=== PATIENT | male | born 1990 | race African-American/Black ===

== ENCOUNTER → 2016-12-30 21:22 | Emergency (ER) | payer OTHER ==
[~2016-12-30 21:22] MED LIST: Ibuprofen TAB* 600 MG PO ONE
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
--- NOTE | 2016-12-30 23:02 | RAD ---
HISTORY: Head injury, facial injury, fall COMPARISONS: None TECHNIQUE: Multiple contiguous axial CT scans were obtained of the face without intravenous contrast, with coronal and sagittal multiplanar reformations. FINDINGS: BONES: There are fractures of the nasal bones bilaterally with angulation to the right. There is a comminuted fracture of the anterior maxilla with extension into the right maxillary sinus. The orbital rims intact. The zygomatic arch is intact. Again noted is a chronic appearing fracture of the spinous process of C7 ORBITS: The globes are round. The optic nerves are symmetric. The extraocular musculature is normal. There is no post septal or intraconal inflammatory change. There is no retrobulbar hematoma. PARANASAL SINUSES: There is an air-fluid level within the right maxillary sinus. BRAIN AND SOFT TISSUE: There is extensive soft tissue swelling of the right face OTHER: None. IMPRESSION: 1. BILATERAL NASAL BONE FRACTURES. 2. COMMINUTED FRACTURE OF THE ANTERIOR MAXILLA WITH EXTENSION INTO THE RIGHT MAXILLARY SINUS. THE ORBITAL RIM IS INTACT. 3. SOFT TISSUE SWELLING
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
[2016-12-31 00:09] VITALS: BP 150/77
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
== END | disposition home or self-care (01) ==
LOC: ED 21:22
DX: S02.40CA Maxillary fracture, right side, initial encounter for closed fracture (principal); S02.2XXA Fracture of nasal bones, initial encounter for closed fracture; S12.600A Unspecified displaced fracture of seventh cervical vertebra, initial encounter for closed fracture; Y04.8XXA Assault by other bodily force, initial encounter; Y93.9 Activity, unspecified; Y92.199 Unspecified place in other specified residential institution as the place of occurrence of the external cause; Z87.891 Personal history of nicotine dependence
CPT/HCPCS: 70450; 70486; 72125; 99283; A9270-GY